=== PATIENT | male | born 1935 | race Caucasian/White ===

== ENCOUNTER 2023-09-11 17:13 | Emergency (ER) | payer MEDICARE, OTHER ==
[2023-09-11 17:54] LABS: BASOPHILS % (AUTO) 0.3 %; EOSINOPHILS # (AUTO) 0.1 10^3/uL (0.0-0.7); EOSINOPHILS % (AUTO) 1.7 %; HCT - HEMATOCRIT 44.5 % (42.0-52.0); LYMPHOCYTES # (AUTO) 0.5 10^3/uL (1.5-3.5); LYMPHOCYTES % (AUTO) 8.1 %; MEAN CORPUSCULAR HEMOGLOBIN 32.7 pg (27.0-31.0); MEAN CORPUSCULAR HGB CONC 33.7 g/dL (32.0-36.0); MEAN CORPUSCULAR VOLUME 96.9 fL (80.0-94.0); MEAN PLATELET VOLUME 11.2 fL (7.4-11.4); MONOCYTES # (AUTO) 0.8 10^3/uL (0.0-1.0); MONOCYTES % (AUTO) 11.5 %; NEUTROPHILS # (AUTO) 5.1 10^3/uL (1.5-6.6); NEUTROPHILS % (AUTO) 78.1 %; PLT - PLATELET COUNT 147 10^3/uL (130-450); RED BLOOD COUNT 4.59 10^6/uL (4.70-6.10); RED CELL DISTRIBUTION WIDTH 12.7 % (12.0-15.0); WHITE BLOOD COUNT 6.5 x10^3/uL (4.8-10.8)
[2023-09-11 18:12] LABS: ALBUMIN 3.9 g/dL (3.2-5.5); ALBUMIN/GLOBULIN RATIO 1.2 (1.0-2.2); BILIRUBIN,TOTAL 1.1 mg/dL (0.2-1.0); CALCIUM 9.5 mg/dL (8.5-10.3); CREATININE 0.9 mg/dL (0.6-1.3); POTASSIUM 4.4 mmol/L (3.5-4.5); TOTAL PROTEIN 7.1 g/dL (6.4-8.9)
--- NOTE | 2023-09-11 20:39 | ED Physician Documentation ---
History of Present Illness - Stated complaint Stated Complaint: ABD PX - Chief complaint Chief Complaint: Abd Pain - History obtained from History obtained from: Patient - Additonal information Additional information: 88yM with recent bout of covid 2 weeks ago presents with epigastric pain since that time migrating diffusely, along with decreased appetite and PO fluid intake. patient had a loose stool today. denies n/v, urinary symptoms or fever. He was seen yesterday at [facility] and prescribed antacid without relief. pain is constant, 7/10 severity. patient is AOX3 but has some word finding difficulty, limiting history. collateral history obtained from friend. PD PAST MEDICAL HISTORY - Past Medical History Past Medical History: Yes Cardiovascular: Hypertension, High cholesterol, [place] : Incontinence - Past Surgical History Cardiovascular: Coronary stent - Present Medications Home Medications: Ambulatory Orders Medication Instructions Recorded Confirmed Atorvastatin [Lipitor] 10 mg PO DAILY 09/11/23 09/11/23 Celecoxib 200 mg PO DAILY 09/11/23 09/11/23 Famotidine [Acid Cloth Bleaching Range Back Tender] 20 mg PO DAILY 09/11/23 09/11/23 Losartan [Cozaar] 100 mg PO DAILY 09/11/23 09/11/23 Omeprazole Magnesium 20 mg PO DAILY 09/11/23 09/11/23 Oxycodone HCl/Acetaminophen 1 each PO Q4H PRN #8 tablet 09/11/23 [Percocet 5-325 mg Tablet] Pregabalin 150 mg PO DAILY 09/11/23 09/11/23 Sucralfate [Carafate] 1 tablet PO ACHS 09/11/23 09/11/23 oxyBUTYnin chloride [Oxybutynin 5 mg PO DAILY 09/11/23 09/11/23 Chloride] - Allergies Allergies/Adverse Reactions: Allergies Allergy/AdvReac Type Severity Reaction Status Date / Time No Known Drug Allergies Allergy Verified 09/11/23 17:34 - Social History Does the pt smoke?: No Smoking Status: Never smoker Does the pt drink ETOH?: Yes Does the pt have substance abuse?: No PD ED PE NORMAL - Vitals Vital signs reviewed: Yes - General General: Alert and oriented X 3, No acute distress, Well developed/nourished - HEENT HEENT: Atraumatic, PERRL, EOMI, Moist mucous membranes, Pharynx benign - Neck Neck: Supple, no meningeal sign - Cardiac Cardiac: RRR - Respiratory Respiratory: No respiratory distress, Clear bilaterally - Abdomen Abdomen: Non tender, Non distended - Back Back: No CVA TTP - Derm Derm: Normal color, Warm and dry - Extremities Extremities: No deformity - Neuro Neuro: No motor deficit, No sensory deficit Results - Vitals Vitals: Vital Signs - 24 hr 09/11/23 09/11/23 09/11/23 17:25 19:34 21:00 Temperature 36.8 C Heart Rate 88 65 61 Respiratory 78 H 20 19 Rate Blood Pressure 145/103 H 148/72 H 142/68 H O2 Saturation 93 95 90 L If not protocol 0 : Oxygen Flow, liters/minute 09/11/23 23:00 Temperature Heart Rate 51 L Respiratory 15 Rate Blood Pressure 137/72 H O2 Saturation 97 If not protocol : Oxygen Flow, liters/minute Oxygen O2 Source Room air - Labs Labs: Laboratory Tests 09/11/23 09/11/23 09/11/23 17:51 17:51 20:45 WBC 6.5 RBC 4.59 L Hgb 15.0 Hct 44.5 MCV 96.9 H MCH 32.7 H MCHC 33.7 RDW 12.7 Plt Count 147 MPV 11.2 Neut # (Auto) 5.1 Lymph # (Auto) 0.5 L [place] # (Auto) 0.8 Eos # (Auto) 0.1 Baso # (Auto) 0.0 Absolute Nucleated RBC 0.00 Nucleated RBC % 0.0 Sodium 141 Potassium 4.4 Chloride 105 Carbon Dioxide 25 Anion Gap 11.0 BUN 28 H Creatinine 0.9 Estimated GFR (MDRD) 80 L Glucose 108 H Calcium 9.5 Total Bilirubin 1.1 H AST 19 ALT 13 Alkaline Phosphatase 58 Total Protein 7.1 Albumin 3.9 Globulin 3.2 Albumin/Globulin Ratio 1.2 Lipase 19 Urine Color DARK YELLOW Urine Clarity SL. CLOUDY Urine pH 5.5 Ur Specific [place] >=1.030 H Urine Protein 30 H Urine Glucose (UA) NEGATIVE Urine Ketones 15 H Urine Occult Blood NEGATIVE Urine Nitrite NEGATIVE Urine Bilirubin MODERATE H Urine Urobilinogen 1 (NORMAL) Ur Leukocyte Esterase NEGATIVE Urine RBC None Seen Urine WBC 4-5 Ur Squamous Epith Cells RARE Squamous Urine Bacteria Moderate H Urine Casts 3-5 Hyaline Casts Urine Mucus Marked Strands Ur Microscopic Review INDICATED Urine Culture Comments NOT INDICATED PD Medical Decision Making - ED course ED course: 88yM presents to the ED with epigastric pain radiating diffusely, and decreased appetite since having covid 2 weeks ago. Discussed with patient and friend that his workup in the ED uncovered no acute issues. cbc, abdominal panel were benign and vital signs and physical exam were normal with exception of mild hypertension. cxr showed Mild perihilar and infrahilar opacities which may be infectious/inflammatory. Patient denies shortness of breath or fever to me or his daughter therefore shared decision was made to hold off on treatment with antibiotics given this may be a postviral pattern after his recent illness with covid. Advised close f/u interval cxr. strict return precautions reinforced. plan to provide prepack of percoset pain medication in the interim until he can see his pcp for follow up. He has appointment at the [place] tomorrow. Departure - Departure Disposition: 01 Home, Self Care Clinical Impression: Epigastric pain Condition: Stable Instructions: Abdominal Pain Prescriptions: Oxycodone HCl/Acetaminophen [Percocet 5-325 mg Tablet] 1 each PO Q4H PRN #8 tablet PRN Reason: Pain >8 Comments: Mr. Guerrero was seen in the emergency department for epigastric abdominal pain. His labwork including cbc, cmp, lipase, and urinalysis was normal. His chest xray showed a possible infectious versus inflammatory pattern and it was recommended to have close follow up chest xray to re-check this. He should return to the ED if he develops shortness of breath or fever. Electronic prescription for percoset was sent to [email or web address]. Do not use when driving or operating heavy machinery. Dispose of any unused pills at your local police station. This medication may cause constipation. If you are prone to constipation then please take with [id number] sennadocusate and MiraLAX. [facility] and return to the emergency department if he has any new or worsening symptoms or other concerns. Forms: PCP List
[2023-09-11 20:53] LABS: GLUCOSE, URINE (UA) NEGATIVE (NEGATIVE); KETONES,URINE (UA) 15 mg/dL (NEGATIVE); LEUKOCYTE ESTERASE, URINE NEGATIVE (NEGATIVE); NITRITE,URINE NEGATIVE (NEGATIVE); OCCULT BLOOD,URINE NEGATIVE (NEGATIVE); PH,URINE 5.5 PH (5.0-7.5); PROTEIN,URINE 30 mg/dL (NEGATIVE); UROBILINOGEN,URINE 1 (NORMAL) E.U./dL (NORMAL)
[2023-09-11 20:59] LABS: CLARITY,URINE SL. CLOUDY (CLEAR)
[2023-09-11 21:01] LABS: BILIRUBIN,URINE MODERATE (NEGATIVE)
[2023-09-11 21:06] LABS: BACTERIA,URINE Moderate /HPF (None Seen); RBC,URINE None Seen /HPF (0-5); SQUAMOUS EPITHELIAL CELL,UR RARE Squamous (<= Few)
[2023-09-11 21:07] LABS: MUCUS,URINE Marked Strands
[2023-09-11 21:08] LABS: CASTS, URINE 3-5 Hyaline Casts /LPF
[2023-09-11] MEDS: SODIUM CHLORIDE 0.9% 500 ML IV STA (21:13)
[2023-09-11] MEDS: FAMOTIDINE 20 MG/2 ML VIAL IVP STA (21:30)
[2023-09-11] MEDS: MORPHINE 10 MG/ML VIAL IVP STA (21:31)
[2023-09-11] MEDS: oxyCODONE/ACET 5/325 Prepack 4 PO STA (21:34)
--- NOTE | 2023-09-11 22:18 | XRAY Report ---
PROCEDURE: Chest 1V INDICATIONS: soa, epigastric pain TECHNIQUE: One view of the chest was acquired. COMPARISON: None. FINDINGS: Surgical changes and devices: None. Lungs and pleura: Mild perihilar and infrahilar opacities. No dense consolidation or pleural effusio n. Mediastinum: Normal heart size Bones and chest wall: Degenerative changes. IMPRESSION: Limited single view portable radiograph. Possible mild perihilar and infrahilar opacities may be infe ctious/inflammatory. Consider future imaging surveillance to assess for resolution. Reviewed by: Guillermo Griffith MD on 09/11/2023 10:17 PM PST Approved by: Guillermo Griffith MD on 09/11/2023 10:17 PM PST Station ID: [id number]
[2023-09-12 00:32] VITALS: BP 131/86; O2SAT 95
== END 2023-09-12 00:29 | disposition home or self-care (01) ==
LOC: ED 17:13
DX: R10.13 Epigastric pain (principal); I10 Essential (primary) hypertension; E78.00 Pure hypercholesterolemia, unspecified; I34.0 Nonrheumatic mitral (valve) insufficiency; Z79.899 Other long term (current) drug therapy
CPT/HCPCS: 36415; 80053; 81001; 81003; 83690; 85025; 87086; 96374; 96375; 99283

== ENCOUNTER 2023-12-18 08:00 | Outpatient (CLI) | payer MEDICARE, OTHER ==
--- NOTE | 2023-12-18 12:54 | XRAY Report ---
Knee 4 View BILAT HISTORY:: 88 years of age, BILAT KNEE PAIN TECHNIQUE: Knee 4 View BILAT COMPARISON: None. FINDINGS/IMPRESSION: Chondrocalcinosis of bilateral knee, representing CPPD arthropathy. Moderate to severe, medial compartment predominant tricompartmental osteoarthritis of the right knee. Severe, medial compartment predominant tricompartmental osteoarthritis of the left knee. Small bilateral knee effusion. Bilateral distal quadricep enthesophyte. Extensive vascular calcificat ion and bulk bilaterally. Reviewed by: Eladia Garvey MD on 12/18/2023 12:53 PM PDT Approved by: Eladia Garvey MD on 12/18/2023 12:53 PM PDT Station ID: [id number]
== END 2023-12-18 23:59 | disposition home or self-care (01) ==
LOC: DI.WOS 08:00
PROVIDERS: ATTEND Orthopaedic Surgery
DX: M11.861 Other specified crystal arthropathies, right knee (principal); M11.862 Other specified crystal arthropathies, left knee; M17.0 Bilateral primary osteoarthritis of knee; I70.203 Unspecified atherosclerosis of native arteries of extremities, bilateral legs; M76.9 Unspecified enthesopathy, lower limb, excluding foot

== ENCOUNTER 2024-02-17 10:01 | Outpatient (CLI) | payer OTHER ==
--- NOTE | 2024-02-17 16:34 | CT Report ---
PROCEDURE: Chest WO INDICATIONS: PULMONARY NODULE TECHNIQUE: A CT scan of the chest was performed. Intravenous contrast media was not administered. Images were re corded and evaluated at appropriate window settings. Reformats: axial MIP of the chest, coronal and s agittal. For radiation dose reduction, the following was used: automated exposure control, adjustment of mA and/or kV according to patient size. COMPARISON: Chest radiograph on September 11, 2023. FINDINGS: Image quality: Diagnostic. Chest wall and lower neck: No thyroid nodule which requires sonographic follow up. No axillary or sup raclavicular adenopathy by size. Elevation of the left hemidiaphragm. Lungs and pleura: Right lower lobe subpleural solid, noncalcified nodule measuring 7 mm (4/75). Two l eft lower lobe subpleural solid pulmonary nodules measuring 4 mm (4/53, 57). Moderate apical predomin ant centrilobular and paraseptal emphysema. Dependent atelectasis. No pleural effusion or pneumothora x. Mediastinum: Heart size is normal. No pericardial effusion. No large vessel abnormality. No mediastin al adenopathy by size criteria. . Calcification of the thoracic aorta. Marked three-vessel coronary calcification with coronary stents. Bones: No aggressive osseous abnormality. Upper Abdomen: Cholelithiasis without acute cholecystitis. Nonobstructive nephrolith in the right upp er pole measuring 4 mm (2/105). Hypodense lesion in the spleen measuring 19 mm with Hounsfield unit o f 15, likely a benign cyst or hemangioma. A few scattered calcified nodules in the peritoneum which l ikely sequela of remote torsed epiploic appendages (for example, 2/103, 111). Moderate calcification of the abdominal aorta including the origin of the celiac artery. IMPRESSION: 1.A few scattered solid, noncalcified pulmonary nodules, the largest of which in the right lower lobe measures 7 mm. Recommend comparison with prior imaging, if available. Otherwise, recommend a repeat CT chest in 3-6 months per Fleischner guidelines. 2.Moderate emphysema. 3.Elevation of the left hemidiaphragm which may be secondary to phrenic nerve dysfunction. 4.Cholelithiasis without acute cholecystitis. 5.Nonobstructive nephrolith in the right upper pole measuring 4 mm. 6.Marked three-vessel coronary calcification/coronary stents. Reviewed by: Steven Bishop MD on 02/17/2024 4:32 PM PDT Approved by: Steven Bishop MD on 02/17/2024 4:32 PM PDT Station ID: [id number]
== END 2024-02-17 10:02 | disposition home or self-care (01) ==
LOC: DI 10:01
PROVIDERS: ATTEND Nurse Practitioner Adult Health
DX: R91.8 Other nonspecific abnormal finding of lung field (principal); J43.9 Emphysema, unspecified; K80.20 Calculus of gallbladder without cholecystitis without obstruction; N20.0 Calculus of kidney; I25.10 Atherosclerotic heart disease of native coronary artery without angina pectoris; Z95.5 Presence of coronary angioplasty implant and graft

== ENCOUNTER 2024-03-16 10:13 | Emergency (ER) | payer OTHER ==
[2024-03-16 10:47] VITALS: BP 171/66; O2SAT 94
--- NOTE | 2024-03-16 15:07 | ED Physician Documentation ---
History of Present Illness - Stated complaint Stated Complaint: NECK PX - Chief complaint Chief Complaint: General - History obtained from History obtained from: Patient - Additonal information Additional information: He fell about a month ago. He injured his left shoulder and some ribs. That is all better at this point and those were radiographed. Starting about a week later though he developed upper neck pain and really cannot turn his neck to the right. PD PAST MEDICAL HISTORY - Past Medical History Past Medical History: Yes Cardiovascular: Hypertension, High cholesterol, [place] Respiratory: None Neuro: Peripheral neuropathy Endocrine/Autoimmune: None GI: None : Incontinence, Other HEENT: None Psych: None Musculoskeletal: None Derm: None Other Past Medical History: prostate cancer - Past Surgical History Past Surgical History: Yes Cardiovascular: Coronary stent - Present Medications Home Medications: Ambulatory Orders Medication Instructions Recorded Confirmed Atorvastatin [Lipitor] 10 mg PO DAILY 09/11/23 03/16/24 Celecoxib 200 mg PO DAILY PM 09/11/23 03/16/24 Losartan [Cozaar] 100 mg PO DAILY 09/11/23 03/16/24 Omeprazole Magnesium 20 mg PO DAILY 09/11/23 03/16/24 Pregabalin 150 mg PO BID 09/11/23 03/16/24 oxyBUTYnin chloride [Oxybutynin 5 mg PO DAILY 09/11/23 03/16/24 Chloride] Acetaminophen [Tylenol] 500 mg PO Q4-6H PRN 03/16/24 03/16/24 Aspirin EC [Ecotrin] 81 mg PO DAILY 03/16/24 03/16/24 - Allergies Allergies/Adverse Reactions: Allergies Allergy/AdvReac Type Severity Reaction Status Date / Time No Known Drug Allergies Allergy Verified 03/16/24 10:38 - Social History Does the pt smoke?: No Smoking Status: Former smoker Does the pt drink ETOH?: Yes Does the pt have substance abuse?: No - Immunizations Immunizations are current?: Yes PD ED PE NORMAL - Vitals Vital signs reviewed: Yes - General General: Alert and oriented X 3, No acute distress - HEENT HEENT: PERRL, EOMI - Neck Neck: Other (Limited range of motion of the neck and can rotate to the right. 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 Normal sensation in both hands.) Eye Opening: Spontaneous Motor: Obeys Commands Verbal: Oriented GCS Score: 15 - Psych Psych: Normal mood, Normal affect Results - Vitals Vitals: Vital Signs - 24 hr 03/16/24 10:38 Temperature 36.1 C L Heart Rate 101 H Respiratory 18 Rate Blood Pressure 171/66 H O2 Saturation 94 Oxygen O2 Source Room air - Rads (name of study) CT of the cervical spine with multilevel degenerative disease and anterolisthesis of C7 on T1 Relevant Findings:: Final report received, EMP independent interpretation of test PD Medical Decision Making - ED course ED course: He has a neck injury, it has been several weeks with limited range of motion. He is not actually tender but with the CT read above will need an MRI. Unfortunately, the MRI is down for maintenance today. Since the injury was 4 weeks ago I think he could probably tolerate another days delay and he was recommended to return for an MRI. Departure - Departure Disposition: 01 Home, Self Care Clinical Impression: Neck injury Qualifiers: Encounter type: initial encounter Qualified Code(s): S19.9XXA - Unspecified inj ury of neck, initial encounter Condition: Good Record reviewed to determine appropriate education?: Yes Instructions: ED Sprain Strain Neck Comments: The CAT scan does not show a break. But there is the anterolisthesis of C7 on T1. You do need an MRI semiurgently and given that the injury was 4 weeks ago I think it can wait a day or so since the MRI is down for maintenance today. Return tomorrow or no later than the next day in the early day for repeat evaluation and MRI. Forms: PCP List
--- NOTE | 2024-03-16 15:25 | CT Report ---
PROCEDURE: Cervical Spine WO INDICATIONS: GLF, neck pain TECHNIQUE: Noncontrast 3 mm thick sections acquired from the skull base to the T4 level. Sagittal and coronal r eformats were then constructed. For radiation dose reduction, the following was used: automated exp osure control, adjustment of mA and/or kV according to patient size. COMPARISON: None. FINDINGS: Image quality: Excellent. Bones: No fractures or dislocations. Severe cervical spondylosis. There is pannus formation at the a nterior articulation between C1 and C2. There is anterolisthesis of C7 on T1 measuring 4 mm with wide jarocho of the disc space anteriorly and narrowing of the disc space posteriorly. Cannot exclude ligamen tous laxity. There is interbody fusion at C2-C3. There is multilevel bulky facet joint hypertrophy. T here is severe multilevel bony foraminal narrowing. There is a large left paracentral osteophyte at C 3-C4 resulting in moderately severe stenosis of the left side of the canal. Visualized superior ribs are intact. Soft tissues: Prevertebral soft tissues are normal in thickness. No paravertebral hematomas. No ap ical pneumothoraces. IMPRESSION: 1. No acute cervical fracture or dislocation. 2. Advanced cervical spondylitic change. 3. 4 mm anterolisthesis of C7 on T1 with widening of the disc space anteriorly and narrowing of the d isc space posteriorly. Cannot exclude ligamentous laxity. 4. Severe multilevel bilateral bony foraminal narrowing. 5. Prominent osteophyte at C3-C4 results in moderately severe stenosis of the left side of the canal. 6. Advanced diffuse cervical facet arthropathy. Comment: Consider cervical spine MRI to evaluate for any evidence of ligamentous injury. Reviewed by: Ayo Hanley MD on 03/16/2024 3:23 PM PDT Approved by: Ayo Hanley MD on 03/16/2024 3:23 PM PDT Station ID: [id number]
== END 2024-03-16 15:40 | disposition home or self-care (01) ==
LOC: ED 10:13
DX: S19.9XXA Unspecified injury of neck, initial encounter (principal); X58.XXXA Exposure to other specified factors, initial encounter; I10 Essential (primary) hypertension; E78.00 Pure hypercholesterolemia, unspecified; I25.2 Old myocardial infarction; Z85.46 Personal history of malignant neoplasm of prostate
CPT/HCPCS: 99283; 99284

== ENCOUNTER 2024-03-18 08:09 | Emergency (ER) | payer MEDICARE, OTHER ==
--- NOTE | 2024-03-18 08:33 | ED Physician Documentation ---
History of Present Illness - Stated complaint Stated Complaint: NECK PX - Chief complaint Chief Complaint: General - History obtained from History obtained from: Patient, Family - Additonal information Additional information: The patient comes to the emergency department for chief complaint of "well, I guess I need an MRI". The patient states that he has been dealing with pain in his neck for the last 3 to 4 weeks since taking a fall. He states he has a little numbness and tingling in the tips of each index finger and thumb, but figured this was just from arthritis in the hands. He denies any new symptoms. He was seen and evaluated for his pain 2 days ago and at that time CT was done and showed multilevel degeneration. He was told at that time that he needed an MRI but the MRI machine was down so he was told to come back in the next day or 2. The patient is not having any Weakness. Other than the bit of numbness and tingling in his thumb and index fingertips, no other neurologic symptoms. No new injury. No other complaints at this time. PD PAST MEDICAL HISTORY - Past Medical History Past Medical History: Yes Cardiovascular: Hypertension, High cholesterol, [place] Respiratory: None Neuro: Peripheral neuropathy Endocrine/Autoimmune: None GI: None : Incontinence, Other HEENT: None Psych: None Musculoskeletal: None Derm: None - Past Surgical History Past Surgical History: Yes Cardiovascular: Coronary stent - Present Medications Home Medications: Ambulatory Orders Medication Instructions Recorded Confirmed Atorvastatin [Lipitor] 10 mg PO DAILY 09/11/23 03/16/24 Celecoxib 200 mg PO DAILY PM 09/11/23 03/16/24 Losartan [Cozaar] 100 mg PO DAILY 09/11/23 03/16/24 Omeprazole Magnesium 20 mg PO DAILY 09/11/23 03/16/24 Pregabalin 150 mg PO BID 09/11/23 03/16/24 oxyBUTYnin chloride [Oxybutynin 5 mg PO DAILY 09/11/23 03/16/24 Chloride] Acetaminophen [Tylenol] 500 mg PO Q4-6H PRN 03/16/24 03/16/24 Aspirin EC [Ecotrin] 81 mg PO DAILY 03/16/24 03/16/24 - Allergies Allergies/Adverse Reactions: Allergies Allergy/AdvReac Type Severity Reaction Status Date / Time No Known Drug Allergies Allergy Verified 03/18/24 08:17 - Social History Does the pt smoke?: No Smoking Status: Never smoker Does the pt drink ETOH?: Yes Does the pt have substance abuse?: No - Immunizations Immunizations are current?: Yes - POLST Patient has POLST: No PD ED PE NORMAL - Vitals Vital signs reviewed: Yes - General General: Alert and oriented X 3, No acute distress, Well developed/nourished - HEENT HEENT: Atraumatic, PERRL, EOMI, Moist mucous membranes - Neck Neck: Supple, no meningeal sign, No bony TTP, Other (Mild tenderness to palpation right lateral aspect superiorly. No step-off.) - Cardiac Cardiac: Strong equal pulses - Respiratory Respiratory: No respiratory distress - Back Back: No spinal TTP, Other (No tenderness over upper back.) - Derm Derm: Normal color, Warm and dry, No rash - Extremities Extremities: No deformity, Normal ROM s pain, No edema - Neuro Neuro: soft boarder 2-12 intact, No motor deficit, Normal speech, Other (The patient is alert and grossly oriented.) - Psych Psych: Normal mood, Normal affect Results - Vitals Vitals: Oxygen O2 Source Room air - Rads (name of study) MR cervical spine no contrast. Relevant Findings:: Final report received, See rad report (No ligamentous edema seen, but possibly some laxity at C7-T1. Otherwise, chronic findings. ) PD Medical Decision Making - ED course Complexity details: reviewed old records, reviewed results, re-evaluated patient, considered differential, d/w patient ED course: MR was done and did not show any ligamentous edema, but did still raise the possibility of laxity between C7 and T1. I discussed the case with Dr Valdovinos of neurosurgery at /[facility], and he stated that although there was no role for emergent management/transfer, he did feel the pt should be seen in their clinic in the next few weeks. Transfer Center will arrange for the clinic to call the pt to set up an appointment. Dr. Valdovinos did also recommend a rigid collar for waking hours, which can be taken off for sleeping. The pt was fitted with a [place] J collar, and advised regarding the plan. He is also advised that should he develop any worsening neurologic deficits, he should report to the nearest emergency department immediately. Departure - Departure Disposition: 01 Home, Self Care Clinical Impression: Neck pain Condition: Stable Instructions: ED Neck Back Pain General Comments: Your CT a couple of days ago showed possible looseness of the ligaments near the bottom of your neck cover head that is why you are brought back for MRI today. The MRI does not show any obvious signs of acute injury but it does show some shifting of your vertebrae at the C7-T1 level, and this could indicate that some your ligaments are loose. Because of the critical location of this finding, your case has been discussed with neurosurgeon Dr. Valdovinos at [facility] and he has viewed your images. He has stated that he feel s that this is most likely stable at this point but just to keep your neck a little safer, he has recommended that you wear a rigid collar when you are not in bed. This has been provided for you today. Dr. Valdovinos says they would like to see you in their spine clinic within the next 3 to 4 weeks. They should be giving you a call tomorrow, but if you do not hear from them by tomorrow evening, please call them first thing to Friday morning at [phone]. Be sure to let them know you are seen in the ER here at [facility], and that your case was discussed with Dr. Alcira Valdovinos, the neuro cost control specialist. If you develop any loss of function of any of your arms or legs, please return to the emergency department immediately. Forms: PCP List Discharge Date/Time: 03/18/24 14:05
--- NOTE | 2024-03-18 12:11 | MRI Report ---
PROCEDURE: Cervical Spine WO INDICATIONS: pain since fall, multilevel degeneration TECHNIQUE: Noncontrast sagittal T1 spin echo and T2 fast spin echo, sagittal STIR, foraminal oblique sagittal T2 fast spin echo, and axial gradient echo or T2 fast spin echo through the cervical spine. COMPARISON: CT cervical spine dated 03/16/2024. FINDINGS: Image quality: Excellent. Alignment and Curvature: There is normal bony alignment. Bone Marrow: Marrow demonstrates normal overall signal. Spinal Cord: Visualized spinal cord has normal size and signal. No cerebellar tonsillar herniation. Paraspinous Soft Tissues: No paravertebral masses. Prevertebral soft tissues are normal in thicknes s. No ligamentous decreased signal is identified. C2-C3: No canal stenosis. Prominent right facet hypertrophy. Right uncovertebral joint hypertrophy. Moderate right foraminal narrowing. C3-C4: Trace anterolisthesis. Bilateral facet hypertrophy, exuberant on the left. Left paracentral osteophyte and uncovertebral joint hypertrophy. Mild central canal stenosis. AP diameter of the centr al canal is 9.0 mm. Moderate stenosis of the left side of the canal. Moderate to severe right foramin al narrowing and severe left foraminal narrowing with bilateral foraminal C4 nerve root impingement. C4-C5: Diffuse posterior disc plus osteophyte. Posterior ligamentous hypertrophy. Moderate to severe canal stenosis. AP diameter of the central canal is 8.1 mm. Bilateral uncovertebral joint hypertroph y and facet hypertrophy. Severe bilateral foraminal narrowing with bilateral foraminal C5 nerve root impingement. C5-C6: Chronic severe disc height loss. Diffuse posterior disc plus osteophyte. Mild central canal s tenosis. AP diameter of the central canal is 9.5 mm. Bilateral uncovertebral joint hypertrophy. Bilat eral facet hypertrophy, exuberant on the left. Moderate to severe bilateral foraminal narrowing with bilateral foraminal C6 nerve root impingement. C6-C7: Chronic disc height loss. Diffuse posterior disc plus osteophyte. Mild canal stenosis. AP bharath meter of the central canal is 9.5 mm. Very large focal right posterior lateral disc osteophyte comple x results in severe narrowing of the right lateral recess. There is severe right foraminal narrowing. There is right foraminal and right lateral recess C7 nerve root impingement. There is left uncoverte bral joint hypertrophy and there is moderate to severe left foraminal narrowing. C7-T1: 3 mm anterolisthesis of C7 on T1. Posteriorly the disc is narrowed and anteriorly. Disc is mi ldly widened. There is prominent facet hypertrophy. There is impingement on the cord anteriorly by di sc bulge and posteriorly by facet hypertrophy. There is severe canal stenosis approximately 7.2 mm. T here is severe bilateral foraminal narrowing with bilateral foraminal C8 nerve root impingement IMPRESSION: 1. 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 2. On the previous CT, there was a question raised of possible ligamentous injury at the level of C7- T1. There is no obvious ligamentous edema. However, the appearance suggests that there may be ligamen tous laxity at this level. There is severe central canal stenosis at this level as well as severe lucie ateral foraminal stenosis. 3. Canal stenosis is mild at C3-C4, moderate to severe at C4-C5, mild at C5-C6, mild at C6-C7, and se andrew at C7-T1. 4. Advanced multilevel foraminal narrowing. Findings include moderate to severe right foraminal narro wing at C3-C4, severe bilateral foraminal narrowing at C4-C5, moderate to severe bilateral foraminal narrowing at C5-C6, severe right foraminal narrowing at C6-C7 as well as moderate to severe left fora jasmyne narrowing at this level, and severe bilateral foraminal narrowing at C7-T1. Reviewed by: Ayo Hanley MD on 03/18/2024 12:09 PM PDT Approved by: Ayo Hanley MD on 03/18/2024 12:09 PM PDT Station ID: [id number]
[2024-03-18 13:46] VITALS: BP 150/76; O2SAT 98
== END 2024-03-18 14:05 | disposition home or self-care (01) ==
LOC: ED 08:09
DX: M54.2 Cervicalgia (principal); I10 Essential (primary) hypertension; E78.00 Pure hypercholesterolemia, unspecified; I25.2 Old myocardial infarction; G62.9 Polyneuropathy, unspecified; Z79.899 Other long term (current) drug therapy
CPT/HCPCS: 99283; 99284